=== PATIENT | male | born 1970 | race Caucasian/White ===

== ENCOUNTER 2024-01-22 09:28 | Emergency (ER) | payer SELFPAY ==
[2024-01-22 09:49] VITALS: O2SAT 97
--- NOTE | 2024-01-22 11:11 | ED Physician Documentation ---
History of Present Illness - Stated complaint Stated Complaint: RT LEG PX,SWELLING - Chief complaint Chief Complaint: Ext Problem - History obtained from History obtained from: Patient - Additonal information Additional information: Pt was sent to the ED for R leg pain, swelling and erythema from [facility] over concern for DVT. Sx have been present for the past several days, but worse in the past 24 hours. No fevers. Pt otherwise feels well. No h/o DVT. PD PAST MEDICAL HISTORY - Past Medical History Past Medical History: Yes Cardiovascular: None Respiratory: None Neuro: None Endocrine/Autoimmune: None GI: None : None HEENT: None Psych: None Musculoskeletal: None Derm: None - Past Surgical History Past Surgical History: No - Present Medications Home Medications: Ambulatory Orders Medication Instructions Recorded Confirmed Sulfamethox/Trimeth 800/160 1 each PO BID #14 tablet 01/22/24 [Bactrim Ds 800/160] - Allergies Allergies/Adverse Reactions: Allergies Allergy/AdvReac Type Severity Reaction Status Date / Time No Known Drug Allergies Allergy Verified 01/22/24 09:40 - Social History Does the pt smoke?: No Smoking Status: Never smoker Does the pt drink ETOH?: No Does the pt have substance abuse?: Yes Substance Use and Type: Marijuana - Immunizations Immunizations are current?: No Immunizations: Other immun not current - POLST Patient has POLST: No PD ED PE NORMAL - Vitals Vital signs reviewed: Yes - General General: Alert and oriented X 3, No acute distress - HEENT HEENT: PERRL - Neck Neck: Supple, no meningeal sign - Cardiac Cardiac: RRR, No murmur - Respiratory Respiratory: No respiratory distress, Clear bilaterally - Derm Derm: Warm and dry, Other (intense erythema of anterior portion of R lower leg. No fluctuance. No calf tenderness.) - Extremities Extremities: No deformity - Neuro Neuro: Alert and oriented X 3 - Psych Psych: Normal mood, Normal affect Results - Vitals Vitals: Oxygen O2 Source Room air - Rads (name of study) Duplex US RLE Relevant Findings:: Final report received, See rad report (neg) PD Medical Decision Making - ED course Complexity details: reviewed results, re-evaluated patient, considered differential, d/w patient ED course: I d/w the pt that his US is negative, and his leg appears more consistent with cellulitis. I will start him on abx. We have discussed home management of the sx, as well as the usual indications for return. Departure - Departure Disposition: 01 Home, Self Care Clinical Impression: Cellulitis Qualifiers: Site of cellulitis: extremity Site of cellulitis of extremity: lower extremity Laterality: right Qualified Code(s): L03.115 - Cellulitis of right lower limb Condition: Stable Instructions: ED Infec Skin Cellulitis Prescriptions: Sulfamethox/Trimeth 800/160 [Bactrim Ds 800/160] 1 each PO BID #14 tablet Comments: The redness and swelling on your leg actually appear very consistent with a cellulitis, or infection of the skin and flesh. The ultrasound is negative for blood clot and your symptoms are not so indicative of this. We have started you on antibiotics here in the emergency department today and a prescription for the same has been electronically transmitted to the [facility] pharmacy in [facility], your pharmacy of choice on record. Please pick them up this afternoon and take your next dose this evening. Please take your doses every day, as directed, until the course is complete. Forms: PCP List Discharge Date/Time: 01/22/24 11:24
--- NOTE | 2024-01-22 11:11 | Ultrasound Report ---
PROCEDURE: Duplex Ext Veins Right INDICATIONS: pain/swelling TECHNIQUE: Real-time imaging, as well as color and pulse Doppler interrogation, were performed of the lower extr emity deep veins from the inguinal ligament to the popliteal fossa. Attempted visualization of the ca lf veins was performed. COMPARISON: None. FINDINGS: The deep veins are normally compressible, and free of intraluminal thrombus. Color and pu lse Doppler demonstrate normal phasic intraluminal flow. There is normal augmentation response to di stal compression maneuver. IMPRESSION: No deep venous thrombosis of the visualized lower extremity. Reviewed by: Dustin Lentz MD on 01/22/2024 11:10 AM PDT Approved by: Dustin Lentz MD on 01/22/2024 11:10 AM PDT Station ID: [id number]
[2024-01-22] MEDS: SULFAMETH/TRIMETH DS 800/160 MG TABLET PO STA (11:18)
[2024-01-22 11:21] VITALS: BP 139/98
== END 2024-01-22 11:24 | disposition home or self-care (01) ==
LOC: ED 09:28
DX: L03.115 Cellulitis of right lower limb (principal)
CPT/HCPCS: 93971; 99283; 99284; A9270

== ENCOUNTER 2024-02-04 09:00 | Outpatient (CLI) | payer SELFPAY | END 2024-02-04 09:15 | disposition home or self-care (01) | LOC: LAB.N 09:00 | PROVIDERS: ATTEND Physician Assistant Medical | DX: L03.115 Cellulitis of right lower limb (principal) | CPT/HCPCS: 87070; 87205 ==